=== PATIENT | male | born 1940 | race African-American/Black ===

== ENCOUNTER 2017-01-24 16:13 | Emergency (ER) | payer MEDICAID, MEDICARE, OTHER ==
[~2017-01-24] VITALS: Ht 172.7 cm; Wt 65.0 kg
[2017-01-24] MEDS ORDERED: SODIUM CHLORIDE 0.9% 1,000 ML IV ONE (16:50)
[2017-01-24 17:30] LABS: BASOPHILS % 0.8 % (0.0-2.0); CHLORIDE 109 mEq/L (98-107); EOSINOPHILS % 3.8 % (0.0-5.0); HEMATOCRIT. 44.1 % (42.0-52.0); HEMOGLOBIN. 14.9 g/dL (14.0-18.0); LYMPHOCYTES % 31.1 % (20.0-50.0); MEAN CORPUSCULAR HEMOGLOBIN 27.9 pg (28.0-32.0); MEAN CORPUSCULAR VOLUME 82.7 fL (80.0-94.0); MEAN PLATELET VOLUME 7.6 fl (7.4-10.4); MONOCYTES % 12.5 % (2.0-8.0); NEUTROPHILS % 51.8 % (40.0-76.0); PLATELET 281 x1000/uL (130-400); RED BLOOD CELL COUNT 5.34 mill/uL (4.7-6.1); RED CELL DISTRIBUTION WIDTH 15.3 % (11.6-14.6)
[2017-01-24 17:32] LABS: PROTHROMBIN TIME 10.7 sec
[2017-01-24 17:41] LABS: CARBON DIOXIDE 25 mEq/L (21-32)
[2017-01-24 17:43] LABS: TROPONIN I < 0.02 ng/mL (0.00-0.04)
[2017-01-24 18:28] LABS: CLARITY URINE CLEAR (CLEAR); COLOR URINE YELLOW (YELLOW); GLUCOSE URINE NEGATIVE (NEGATIVE); KETONES URINE NEGATIVE (NEGATIVE); LEUKOCYTE ESTERASE URINE 1+ (NEGATIVE); NITRITE URINE NEGATIVE (NEGATIVE); OCCULT BLOOD URINE 1+ (NEGATIVE); PH URINE 5.5 (4.5-8.0); PROTEIN URINE 1+ (NEGATIVE); SPECIFIC GRAVITY URINE 1.011 (1.005-1.030); UROBILINOGEN URINE 0.2 E.U./dL (0.2-1.0)
[2017-01-24] MEDS ORDERED: IBUPROFEN 400MG TABLET PO ONE (20:45)
[2017-01-24 20:59] VITALS: BP 152/93
== END 2017-01-24 21:00 | disposition home or self-care (01) ==
LOC: ER 16:17
DX: S09.90XA Unspecified injury of head, initial encounter (principal); N39.0 Urinary tract infection, site not specified; I10 Essential (primary) hypertension; R42 Dizziness and giddiness; F17.200 Nicotine dependence, unspecified, uncomplicated; Z88.1 Allergy status to other antibiotic agents; W22.8XXA Striking against or struck by other objects, initial encounter; Y93.89 Activity, other specified; Y92.89 Other specified places as the place of occurrence of the external cause; Y99.8 Other external cause status
CPT/HCPCS: 36415; 70450; 71010; 80053; 81001; 83880; 84484; 85025; 85610; 93005; 96360; 96361; 99285; J7030; Z7610

== ENCOUNTER 2020-04-18 14:56 | Emergency (ER) | payer MEDICARE, OTHER ==
[~2020-04-18] VITALS: Ht 172.7 cm; Wt 62.0 kg
[2020-04-18] MEDS ORDERED: ACETAMINOPHEN WITH CODEINE 300/60MG TABLET PO ONE (17:45)
[2020-04-18 18:04] VITALS: BP 136/88
== END 2020-04-18 19:42 | disposition home or self-care (01) ==
LOC: ER 14:56
DX: G89.29 Other chronic pain (principal); M54.9 Dorsalgia, unspecified; Z76.0 Encounter for issue of repeat prescription
CPT/HCPCS: 99283